=== PATIENT | female | born 1925 | race African-American/Black ===

== ENCOUNTER 2017-01-29 13:03 | Emergency (ER) | payer MEDICARE, MEDICAID ==
[2017-01-29 14:25] LABS: ALT (SGPT) 17 U/L (8-55); AST (SGOT) 19 U/L (5-34); Alkaline Phosphatase 80 U/L (40-150); Anion Gap 13 mmol/L (10-20); BUN (Urea Nitrogen) 30 mg/dL (9.8-20.1); Bilirubin, Total 0.3 mg/dL (0.2-1.2); Calc. Creatinine Clearance 0 mL/min (70-130); Calcium 9.2 mg/dL (7.8-10.44); Carbon Dioxide 20 mmol/L (23-31); Chloride 112 mmol/L (98-107); Estimated GFR-MDRD 48; Globulin 3.5 g/dL (2.4-3.5); Protein, Total 7.4 g/dL (6.0-8.3)
[2017-01-29 14:34] LABS: Bilirubin Negative (Negative); Blood, Urine Negative (Negative); Glucose, Urine (Dipstick) Negative (Negative); Ketone, Urine Negative (Negative); Nitrite Negative (Negative); Protein, Urine (Dipstick) Negative (Neg-Trace); Urobilinogen 0.2 mg/dL (0.2-1.0)
[2017-01-29 14:37] LABS: Bacteria/HPF 4+ HPF (None Seen); Hyaline Casts/LPF 0-3 HYALINE CAST LPF (0-3 Hyaline); RBC/HPF None Seen HPF (0-3); WBC/HPF 0-3 HPF (0-3)
[2017-01-29 14:51] LABS: Hematocrit 38.9 % (36.0-47.0); Mean Platelet Volume 9.9 fL (7.4-10.4); Red Blood Cell (RBC) Count 4.11 mill/uL (4.20-5.40); White Blood Cell (WBC) Count 5.4 thou/uL (4.8-10.8)
[2017-01-29 14:52] LABS: Neutrophil 68 % (42-75)
[2017-01-29] MEDS ORDERED: Ketorolac Tromethamine 30 MG/ML VIAL ONE (15:11)
--- NOTE | 2017-01-29 15:50 | RAD ---
EXAM: AP PELVIS HISTORY: PAIN. FINDINGS: There is a probable acute fracture involving the left inferior and superior pubic rami. Overall, luation of the bony pelvis is limited by bone demineralization. IMPRESSION: Acute left inferior and superior pubic rami fractures are suspected. Better interrogation with a pel ian CT is recommended. POS: [facility]
--- NOTE | 2017-01-29 16:07 | CT ---
PELVI CT WITHOUT IV CONTRAST: History: 89-year-old female with pelvic pain and low back pain with pain down her leg. Comparison: AP pelvis plain film examination, 01-29-17. FINDINGS: Heterogeneous bony demineralization. Arthrosis changes of both hip joints and SI joints. No evidence for an acute pelvic fracture. Significant lumbar spine spondylosis with 0.9 cm anterolisthesis of L 4 on L5 with some associated canal, right recess, and foraminal stenosis. IMPRESSION: Bony demineralization with degenerative changes without acute pelvic fracture. Lumbar spine spondylo sis with prominent anterolisthesis of L4 on L5. POS: [facility]
== END 2017-01-29 16:56 | disposition home or self-care (01) ==
LOC: ERS 13:03
DX: M54.40 Lumbago with sciatica, unspecified side (principal); E10.40 Type 1 diabetes mellitus with diabetic neuropathy, unspecified; E78.5 Hyperlipidemia, unspecified; I48.91 Unspecified atrial fibrillation; I10 Essential (primary) hypertension; Z79.4 Long term (current) use of insulin; Z79.899 Other long term (current) drug therapy
CPT/HCPCS: 36415; 51701; 72170; 72192; 80053; 81003; 81015; 85025; 93005; 96372; A4353; J1885

== ENCOUNTER 2017-04-15 12:05 | Emergency (ER) | payer MEDICARE, MEDICAID ==
[2017-04-15 13:41] LABS: Bilirubin Negative (Negative); Blood, Urine Negative (Negative); Clarity CLEAR (Clear); Glucose, Urine (Dipstick) Negative (Negative); Leukocyte Small (Negative); Nitrite Negative (Negative); Protein, Urine (Dipstick) Negative (Neg-Trace); Specific Gravity, Urine 1.015 (1.002-1.036); Urobilinogen 0.2 mg/dL (0.2-1.0)
[2017-04-15 13:46] LABS: Bacteria/HPF 4+ HPF (None Seen); Hyaline Casts/LPF 4-6 HYALINE CAST LPF (0-3 Hyaline); Pathc Cast-AUWi Flag 0.13 (0-2.49); RBC/HPF 0-3 HPF (0-3); Squamous Epithelial 0-3 HPF (0-3)
[2017-04-15 13:46] LABS: #Eosinphils 0.2 thou/uL (0.0-0.7); #Lymphocytes 1.9 thou/uL (1.20-3.40); #Monocytes 0.4 thou/uL (0.11-0.59); #Neutrophils 3.7 thou/uL (1.40-6.50); %Basophils 0.3 % (0.0-1.0); %Eosinophils 3.4 % (0.0-10.0); %Monocytes 6.5 % (0.0-10.0); %Neutrophils 58.8 % (42.0-75.0); Hemoglobin 12.6 g/dL (12.0-16.0); Mean Corpuscular HGB CONC 32.2 g/dL (32.0-36.0); Mean Corpuscular Hemoglobin 30.4 pg (27.0-31.0); Mean Corpuscular Volume 94.4 fl (81.0-99.0); Mean Platelet Volume 9.9 fL (7.4-10.4); Platelet Count 170 thou/uL (130-400); RBC Distribution Width 12.4 % (11.5-14.5); Red Blood Cell (RBC) Count 4.16 mill/uL (4.20-5.40); White Blood Cell (WBC) Count 6.2 thou/uL (4.8-10.8)
--- NOTE | 2017-04-15 13:59 | RAD ---
UPRIGHT PORTABLE CHEST 1 VIEW: Date: 04/15/17 HISTORY: 89-year-old female with altered mental status and weakness, with low blood count. COMPARISON: 05/10/16. FINDINGS: Minimal cardiomegaly. Left ICD. Atherosclerosis of aorta with ectasia. Metal plate and screws stabili ze the proximal humerus. No confluent pneumonia, overt edema, or pleural effusion. IMPRESSION: Minimal cardiomegaly. Atherosclerosis of the aorta with ectasia. POS: [facility]
[2017-04-15 14:11] LABS: ALT (SGPT) 9 U/L (8-55); AST (SGOT) 17 U/L (5-34); Alkaline Phosphatase 93 U/L (40-150); Anion Gap 13 mmol/L (10-20); BUN (Urea Nitrogen) 27 mg/dL (9.8-20.1); Bilirubin, Total 0.2 mg/dL (0.2-1.2); CK (CPK) 420 U/L (29-168); CKMB 4.2 ng/mL (0-6.6); Calc. Creatinine Clearance 0 mL/min (70-130); Calcium 9.7 mg/dL (7.8-10.44); Carbon Dioxide 26 mmol/L (23-31); Chloride 107 mmol/L (98-107); Estimated GFR-MDRD 40; Globulin 3.4 g/dL (2.4-3.5); Glucose 200 mg/dL (83-110); Lipase 9 U/L (8-78); Potassium 4.9 mmol/L (3.5-5.1); Protein, Total 7.4 g/dL (6.0-8.3); Sodium 141 mmol/L (136-145); Troponin I Less than 0.010 ng/mL (< 0.028)
--- NOTE | 2017-04-29 18:41 | EKG ---
Test Reason : FATIGUE Blood Pressure : / mmHG Vent. Rate : 092 BPM Atrial Rate : 092 BPM P-R Int : 260 ms QRS Dur : 104 ms QT Int : 330 ms P-R-T Axes : 086 -27 245 degrees QTc Int : 408 ms Sinus rhythm with 1st degree A-V block with frequent ventricular-paced complexes Cannot rule out Anterior infarct , age undetermined Abnormal ECG Confirmed by YAAKOV HAYES MD ([id number]), features editor FINA BLUE ([id number]) on 04/29/2017 6:40:24 PM Referred By: Confirmed By:YAAKOV HAYES MD
== END 2017-04-15 15:34 | disposition home or self-care (01) ==
LOC: ERS 12:05
DX: N39.0 Urinary tract infection, site not specified (principal); N28.9 Disorder of kidney and ureter, unspecified; E10.40 Type 1 diabetes mellitus with diabetic neuropathy, unspecified; E78.5 Hyperlipidemia, unspecified; I48.91 Unspecified atrial fibrillation; I10 Essential (primary) hypertension; Z79.4 Long term (current) use of insulin; Z79.899 Other long term (current) drug therapy
CPT/HCPCS: 36415; 36416; 51701; 71045; 80053; 81003; 81015; 82550; 82553; 83690; 84484; 85025; 93005; 96374; A4353; J0696

== ENCOUNTER 2017-04-17 14:06 | Emergency (ER) | payer MEDICARE, MEDICAID ==
--- NOTE | 2017-04-17 15:00 | CT ---
CT OF THE BRAIN WITHOUT CONTRAST: Date: 04/17/17 COMPARISON: 04/12/16. HISTORY: Altered mental status and hallucinations. TECHNIQUE: Multiple contiguous axial images were obtained in a CT of the brain without contrast. FINDINGS: There is encephalomalacia in the left occipital lobe. Calcifications are seen in the basal ganglia. T here is no evidence of hydrocephalus, intracranial hemorrhage, or extra-axial fluid collection. No ne w large confluent infarction is seen. The calvarium and overlying soft tissues are unremarkable. The visualized paranasal sinuses and masto id air cells are well aerated. IMPRESSION: No evidence of acute intracranial abnormality. POS: [facility]
[2017-04-17 15:23] LABS: #Eosinphils 0.2 thou/uL (0.0-0.7); #Lymphocytes 1.6 thou/uL (1.20-3.40); #Monocytes 0.4 thou/uL (0.11-0.59); #Neutrophils 3.2 thou/uL (1.40-6.50); %Basophils 0.4 % (0.0-1.0); %Eosinophils 3.9 % (0.0-10.0); %Lymphocytes 29.1 % (21.0-51.0); %Monocytes 7.9 % (0.0-10.0); %Neutrophils 58.7 % (42.0-75.0); Hemoglobin 11.5 g/dL (12.0-16.0); Mean Corpuscular HGB CONC 30.9 g/dL (32.0-36.0); Mean Corpuscular Hemoglobin 29.5 pg (27.0-31.0); Mean Corpuscular Volume 95.4 fl (81.0-99.0); Mean Platelet Volume 9.9 fL (7.4-10.4); Platelet Count 162 thou/uL (130-400); RBC Distribution Width 12.3 % (11.5-14.5); White Blood Cell (WBC) Count 5.5 thou/uL (4.8-10.8)
[2017-04-17 15:26] LABS: Bilirubin Negative (Negative); Blood, Urine Negative (Negative); Clarity CLEAR (Clear); Glucose, Urine (Dipstick) Negative (Negative); Leukocyte Negative (Negative); Nitrite Negative (Negative); Protein, Urine (Dipstick) Negative (Neg-Trace); Specific Gravity, Urine 1.015 (1.002-1.036); Urobilinogen 0.2 mg/dL (0.2-1.0); pH, Urine 5.5 (5.0-9.0)
[2017-04-17 15:43] LABS: ALT (SGPT) 8 U/L (8-55); AST (SGOT) 14 U/L (5-34); Albumin 3.9 g/dL (3.4-4.8); Alkaline Phosphatase 86 U/L (40-150); Anion Gap 13 mmol/L (10-20); BUN (Urea Nitrogen) 30 mg/dL (9.8-20.1); Bilirubin, Total 0.2 mg/dL (0.2-1.2); CK (CPK) 310 U/L (29-168); Calc. Creatinine Clearance 0 mL/min (70-130); Calcium 9.2 mg/dL (7.8-10.44); Carbon Dioxide 25 mmol/L (23-31); Chloride 105 mmol/L (98-107); Estimated GFR-MDRD 33; Globulin 3.2 g/dL (2.4-3.5); Glucose 236 mg/dL (83-110); Potassium 4.6 mmol/L (3.5-5.1); Protein, Total 7.1 g/dL (6.0-8.3); Sodium 138 mmol/L (136-145)
[2017-04-17 15:48] LABS: CKMB 2.4 ng/mL (0-6.6); Troponin I Less than 0.010 ng/mL (< 0.028)
== END 2017-04-17 16:10 | disposition home or self-care (01) ==
LOC: ERS 14:06
DX: R41.82 Altered mental status, unspecified (principal); E10.40 Type 1 diabetes mellitus with diabetic neuropathy, unspecified; E78.5 Hyperlipidemia, unspecified; I48.91 Unspecified atrial fibrillation; I10 Essential (primary) hypertension
CPT/HCPCS: 36415; 51701; 70450; 80053; 81003; 82553; 83605; 84484; 85025; 87040; 87086; A4353

== ENCOUNTER 2017-04-28 16:02 | Emergency (ER) | payer MEDICARE, MEDICAID ==
[2017-04-28] MEDS ORDERED: HYDROcodone/Acetaminophen 5/325 mg Tablet ONE (16:36)
[2017-04-28 17:24] LABS: Bilirubin Negative (Negative); Blood, Urine Negative (Negative); Clarity CLOUDY (Clear); Glucose, Urine (Dipstick) Negative (Negative); Leukocyte Moderate (Negative); Nitrite Negative (Negative); Protein, Urine (Dipstick) Negative (Neg-Trace); Specific Gravity, Urine 1.012 (1.002-1.036); Urobilinogen 0.2 mg/dL (0.2-1.0); pH, Urine 5.5 (5.0-9.0)
[2017-04-28 17:26] LABS: Bacteria/HPF 4+ HPF (None Seen); Hyaline Casts/LPF 4-6 HYALINE CAST LPF (0-3 Hyaline); Pathc Cast-AUWi Flag 1.21 (0-2.49); RBC/HPF None Seen HPF (0-3)
[2017-04-28 17:50] LABS: Transitional Epithelial 0-3 HPF (0-3)
--- NOTE | 2017-04-28 18:08 | RAD ---
LEFT SHOULDER THREE VIEWS 04/28/17 HISTORY: Pain. COMPARISON: 03/15/16. FINDINGS: Stable severe degenerative change. No evidence of an acute fracture. There is mild bone demineralizat ion. The visualized left ribs are unremarkable. IMPRESSION: Stable severe degenerative change. POS: [facility]
--- NOTE | 2017-04-28 18:27 | RAD ---
TWO VIEWS RIGHT HIP 04/28/17 HISTORY: Double leg amputee. Pain. COMPARISON: None. FINDINGS: There is diffuse bone demineralization likely due to disuse osteopenia. Obvious fracture is not appre ciated. Limited evaluation of the joint space. No high grade degenerative change is appreciated. Vasc ular calcifications are identified. IMPRESSION: Disuse osteopenia. POS: [facility]
--- NOTE | 2017-04-28 20:48 | RAD ---
TWO VIEWS LEFT HIP 04/28/17 HISTORY: Pain. COMPARISON: 05/10/15. FINDINGS: Findings compatible with amputation. Limited evaluation of the hip. No obvious fracture. Mild loss of the hip joint space height is suspected. There is diffuse osteopenia. Vascular calcifications are id entified. IMPRESSION: Disuse osteopenia. No fracture. POS: [facility]
[2017-04-28] MEDS ORDERED: Cipro 250 MG TAB PO SCH (21:00)
== END 2017-04-28 21:25 | disposition home or self-care (01) ==
LOC: ERS 16:02
DX: N39.0 Urinary tract infection, site not specified (principal); E10.40 Type 1 diabetes mellitus with diabetic neuropathy, unspecified; E78.5 Hyperlipidemia, unspecified; I48.91 Unspecified atrial fibrillation; I10 Essential (primary) hypertension; Z79.4 Long term (current) use of insulin; Z79.899 Other long term (current) drug therapy
CPT/HCPCS: 51701; 81003; 81015; 87077; 87086; 87186; A4353

== ENCOUNTER 2017-06-04 09:56 | Observation (INO) | payer MEDICARE, MEDICAID ==
[2017-06-04 10:43] LABS: #Eosinphils 0.2 thou/uL (0.0-0.7); #Lymphocytes 1.7 thou/uL (1.20-3.40); #Monocytes 0.4 thou/uL (0.11-0.59); #Neutrophils 3.5 thou/uL (1.40-6.50); %Basophils 0.1 % (0.0-1.0); %Eosinophils 3.7 % (0.0-10.0); %Lymphocytes 29.6 % (21.0-51.0); %Monocytes 7.5 % (0.0-10.0); %Neutrophils 59.2 % (42.0-75.0); Hemoglobin 12.9 g/dL (12.0-16.0); Mean Corpuscular HGB CONC 32.1 g/dL (32.0-36.0); Mean Corpuscular Hemoglobin 29.6 pg (27.0-31.0); Mean Corpuscular Volume 92.2 fl (81.0-99.0); Mean Platelet Volume 10.1 fL (7.4-10.4); Platelet Count 200 thou/uL (130-400); RBC Distribution Width 12.5 % (11.5-14.5); Red Blood Cell (RBC) Count 4.38 mill/uL (4.20-5.40); White Blood Cell (WBC) Count 5.9 thou/uL (4.8-10.8)
[2017-06-04 10:59] LABS: ALT (SGPT) 24 U/L (8-55); AST (SGOT) 23 U/L (5-34); Albumin 3.9 g/dL (3.4-4.8); Alkaline Phosphatase 91 U/L (40-150); Anion Gap 14 mmol/L (10-20); BUN (Urea Nitrogen) 33 mg/dL (9.8-20.1); Bilirubin, Total 0.3 mg/dL (0.2-1.2); Calc. Creatinine Clearance 0 mL/min (70-130); Calcium 9.5 mg/dL (7.8-10.44); Carbon Dioxide 25 mmol/L (23-31); Chloride 108 mmol/L (98-107); Estimated GFR-MDRD 40; Globulin 3.7 g/dL (2.4-3.5); Glucose 174 mg/dL (83-110); Protein, Total 7.6 g/dL (6.0-8.3); Sodium 142 mmol/L (136-145)
[2017-06-04 11:04] LABS: CKMB 2.1 ng/mL (0-6.6); Troponin I Less than 0.010 ng/mL (< 0.028)
[2017-06-04 11:53] LABS: Bilirubin Negative (Negative); Blood, Urine Moderate (Negative); Glucose, Urine (Dipstick) Negative (Negative); Leukocyte Negative (Negative); Nitrite Negative (Negative); Protein, Urine (Dipstick) Negative (Neg-Trace); Urobilinogen 0.2 mg/dL (0.2-1.0); pH, Urine 7.5 (5.0-9.0)
[2017-06-04 11:59] LABS: Clarity HAZY (Clear); Specific Gravity, Urine 1.001 (1.002-1.036)
[2017-06-04 12:00] LABS: RBC/HPF 0-3 HPF (0-3); Squamous Epithelial 0-3 HPF (0-3); WBC/HPF 0-3 HPF (0-3)
[2017-06-04 12:01] LABS: Bacteria/HPF 4+ HPF (None Seen); Hyaline Casts/LPF NONE SEEN LPF (0-3 Hyaline)
--- NOTE | 2017-06-04 12:50 | CT ---
CT OF THE BRAIN WITHOUT CONTRAST: INDICATION: Syncopal episode while having a bowel movement. COMPARISON: Prior exam dated 04/17/17. FINDINGS: The encephalomalacia involving the left occipital lobe is stable. Calcifications involving the basal ganglia are similar-appearing. Mild chronic small-vessel white matter ischemic change is similar. No acute infarct, hemorrhage, or hydrocephalus is present. Mild mucosal thickening is seen within th e ethmoid air cells. Mastoid air cells are clear. The skull is intact. IMPRESSION: No acute intracranial abnormality. POS: [facility]
[2017-06-04] MEDS ORDERED: Acetaminophen 325 MG TAB PO PRN (14:02)
[2017-06-04 14:42] LABS: Troponin I Less than 0.010 ng/mL (< 0.028)
[2017-06-04] MEDS ORDERED: Dextrose 50% Abboject 50 ML SYRINGE IVP PRN (16:19)
[2017-06-04] MEDS ORDERED: Insulin Regular 300 UNITS/3 ML VIAL SC PRN (16:19)
[2017-06-04] MEDS ORDERED: Dextrose 5% in Water 1,000 ML IV PRN (16:19)
[2017-06-04 17:38] LABS: Troponin I Less than 0.010 ng/mL (< 0.028)
[2017-06-04] MEDS ORDERED: Acetaminophen 500 MG TAB PO PRN (18:05)
[2017-06-04] MEDS: Sodium Chloride 0.45% 1,000 ML IV SCH (18:30)
[2017-06-04] MEDS ORDERED: Pregabalin 75 MG CAP PO SCH (21:00)
[2017-06-04] MEDS ORDERED: Insulin Detemir 100 UNITS/ML 30 UNITS in Pre-Filled Syringe SC SCH (21:00)
[2017-06-04] MEDS ORDERED: Pravastatin Sodium 40 MG TAB PO SCH (21:00)
[2017-06-04] MEDS ORDERED: Donepezil HCl 5 MG TAB PO SCH (21:00)
[2017-06-04] MEDS: HumaLOG 300 UNITS/3 ML VIAL SC SCH (21:14)
--- NOTE | 2017-06-04 22:23 | ULT ---
BILATERAL CAROTID DUPLEX ULTRASOUND WITH SPECTRAL ANALYSIS AND COLOR FLOW EVALUATION: Date: 06-04-17 History: Dizziness. Comparison: 01-03-13 FINDINGS: Grayscale, color flow, doppler evaluation and spectral analysis of the bilateral carotid arteries is performed with 2D imaging. There is calcified atherosclerotic plaque involving the bilateral carotid bulbs and proximal internal carotid arteries bilaterally, greater on the right. There is less than 50% maximal stenosis in the bilateral internal carotid arteries according to the p eak systolic velocities and the ICA/CCA ratios. Peak systolic velocity in the right ICA is 53.3 cm/se c with an ICA/CCA ratio of 0.88. The peak systolic velocity in the left ICA is 67.2 cm/sec with ICA/C CA ratio of 0.78. The velocity measurements are similar to the prior study in 2013. Antegrade flow is demonstrated in the vertebral arteries bilaterally. IMPRESSION: No hemodynamically significant stenosis in the bilateral internal carotid arteries. POS: [facility]
[2017-06-05] MEDS: Sodium Chloride 0.45% 1,000 ML IV SCH (05:02)
[2017-06-05 05:48] LABS: Hemoglobin A1c 6.3 % (4.0-6.0)
[2017-06-05 05:51] LABS: Anion Gap 12 mmol/L (10-20); BUN (Urea Nitrogen) 28 mg/dL (9.8-20.1); Calc. Creatinine Clearance 42 mL/min (70-130); Calcium 9.3 mg/dL (7.8-10.44); Carbon Dioxide 23 mmol/L (23-31); Chloride 111 mmol/L (98-107); Estimated GFR-MDRD 56; Glucose 84 mg/dL (83-110); Potassium 4.3 mmol/L (3.5-5.1); Sodium 142 mmol/L (136-145)
[2017-06-05] MEDS ORDERED: Levothyroxine Sodium 100 MCG TAB PO SCH (06:00)
--- NOTE | 2017-06-05 06:10 | HP ---
DATE OF ADMISSION: 06/04/2017 REASON FOR ADMISSION AND CHIEF COMPLAINT: Near syncopal episode. HISTORY OF PRESENT ILLNESS: Ms. Rajput is an 89-year-old -[place] female with past medic al history of diabetes mellitus, hypertension, peripheral vascular disease, and had an episode of velia r syncope. She had felt like passing out while she was in the bathroom. The patient's family was ab le to hold on and she did not fall, hit her head or anything. She did not lose consciousness, but fe lt very dizzy, almost felt like passing out. The patient was also noted to be bit confused after the episode. So, the patient was brought to the emergency room where she was evaluated and found to hav e normal EKG and normal cardiac enzymes. The patient is being admitted to rule out any cardiac arrhy thmia, rule out GA in view of her risk factors. PAST MEDICAL HISTORY: 1. Hypertension. 2. Insulin-dependent diabetes mellitus. 3. Peripheral vascular disease. 4. Hyperlipidemia. 5. Chronic anemia. PAST SURGICAL HISTORY: Status post hip replacement, status post knee amputation bilaterally, status post arterial femoral bypass graft. CURRENT MEDICATIONS: The patient is on amlodipine 5 mg daily, vitamin D 5000 units daily, Aricept 5 mg daily, ferrous sulfate 325 mg daily, Lantus insulin 30 units daily, levothyroxine 100 mcg daily, P rotonix 40 mg daily, MiraLax 17 grams daily, Pravachol 40 mg at bedtime, Lyrica 75 b.i.d., valsartan with hydrochlorothiazide 160/25 mg daily, NovoLog insulin 12 units before each meal. ALLERGIES: No known drug allergies. FAMILY HISTORY: Nothing of interest. SOCIAL HISTORY: The patient lives with family. No history of smoking. No history of alcohol intake . REVIEW OF SYSTEMS: Cardiovascular: No chest pain. No shortness of breath. Respiratory: No fever or cough. Gastrointestinal: No nausea, vomiting, no abdominal pain. Central nervous system: No he adache, no dizziness. PHYSICAL EXAMINATION: GENERAL: The patient is alert, awake, oriented x3. VITAL SIGNS: Temperature 98, pulse 97, respirations 20, blood pressure 150/70. HEENT: Head is normocephalic, atraumatic. Pupils are equal and reactive to light. Nasopharynx is p karthikeyan and dry. Hard and soft palate, no lesions seen. SKIN: Skin turgor decreased. NECK: Supple. No JVD. LUNGS: Bilateral air entry present. No rales, no rhonchi. HEART: S1, S2 regular. ABDOMEN: Soft, no distention, no tenderness. Normal bowel sounds. RECTAL: Deferred. CENTRAL NERVOUS SYSTEM: No focal deficits. LABORATORY DATA AND X-RAY FINDINGS: CBC shows WBC 5.9, hemoglobin 12, hematocrit 40, platelets 200. Metabolic panel: Sodium 142, potassium 5, chloride 108, CO2 of 25, urea nitrogen 33, creatinine 1.4 , glucose 174, CK-MB 2.1, troponin I less than 0.010. Urinalysis negative. CT of the brain unremark able. EKG shows normal sinus rhythm, no acute ST-T wave changes seen. ASSESSMENT: 1. Near syncopal episode, rule out myocardial infarction, rule out cardiac arrhythmia. 2. Diabetes mellitus. 3. Hypertension. 4. Peripheral vascular disease. 5. Status post below knee amputation bilaterally. 6. Acute kidney injury. PLAN: 1. Vital signs q.4 hours. 2. Activity: As tolerated. 3. Allergies: NKDA. 4. IV fluids: Normal saline at 100 mL per hour x2 liters. 5. Accu-Cheks a.c. and bedtime. 6. Sliding scale mild with regular insulin. 7. ADA diet. 8. Continue home medications. 9. Carotid Doppler study. 10. Echocardiogram.
[2017-06-05 08:04] VITALS: TEMP 97.9
[2017-06-05] MEDS ORDERED: Polyethylene Glycol 3350 17 GM Packet PO SCH (09:00)
[2017-06-05] MEDS ORDERED: Amlodipine 5 MG TAB PO SCH (09:00)
[2017-06-05] MEDS ORDERED: Ferrous Sulfate 325 MG TAB PO SCH (09:00)
[2017-06-05] MEDS ORDERED: Hydrochlorothiazide 25 MG TAB PO SCH (09:00)
[2017-06-05] MEDS ORDERED: Valsartan 80 MG TAB PO SCH (09:00)
[2017-06-05] MEDS: HumaLOG 300 UNITS/3 ML VIAL SC SCH ×2 (09:30→16:11)
[2017-06-05 17:04] VITALS: BP 140/65
--- NOTE | 2017-06-06 14:22 | DIS ---
DATE OF ADMISSION: 06/04/2017 DATE OF DISCHARGE: 06/05/2017 ADMITTING DIAGNOSES: 1. Near syncopal episode, rule out myocardial infarction, rule out cardiac arrhythmia. 2. Diabetes mellitus. 3. Hypertension. 4. Peripheral vascular disease. 5. Status post [id number]-[id number] amputation bilaterally. 6. Acute kidney injury. FINAL DIAGNOSES: 1. Near syncopal episode. No evidence of acute myocardial infarction and no evidence of cardiac arr hythmia. 2. Acute kidney injury, improved. 3. Diabetes mellitus. 4. Hypertension. 5. Peripheral vascular disease. BRIEF SUMMARY OF HOSPITAL COURSE: Ms. Rajput is an 89-year-old -[place] admitted because of near syncopal episode. The patient nearly passed out, but she is admitted to rule out myocardial infarction and rule out cardiac arrhythmia. Cardiac monitoring did not show any arrhythmia. Serial cardiac enzymes were normal. Carotid Doppler study was done and showed negative for any hemodynamic ally significant stenosis. Echocardiogram was done, showed normal left ventricular function, ejectio n fraction of 51%. Patient does not have any more dizziness and was discharged in view of improvemen t. At the time of discharge, she was stable. Her vital signs were stable. Lungs were clear. Heart sounds regular. Abdomen was soft, nontender. Bowel sounds present. DISCHARGE MEDICATIONS: Lyrica 75 mg daily, valsartan with hydrochlorothiazide 160/25 mg daily, Elza nix 40 mg daily, Synthroid 100 mcg daily, amlodipine 5 mg daily, NovoLog insulin 20 units before meal s t.i.d., Lantus insulin 30 units daily, Aricept 5 mg daily, Pravachol 40 mg daily, MiraLax 17 grams daily, ferrous sulfate daily, vitamin D daily, Tylenol p.r.n. FOLLOWUP: The patient will be followed up in 2 weeks.
== END 2017-06-05 17:19 | disposition home or self-care (01) ==
LOC: ERS 09:56 → 2NO 12:47
PROVIDERS: ADMIT Internal Medicine; ATTEND Internal Medicine
DX: R55 Syncope and collapse (principal); E10.51 Type 1 diabetes mellitus with diabetic peripheral angiopathy without gangrene; I10 Essential (primary) hypertension; E78.5 Hyperlipidemia, unspecified; D53.9 Nutritional anemia, unspecified; N17.9 Acute kidney failure, unspecified; Z96.649 Presence of unspecified artificial hip joint; Z79.899 Other long term (current) drug therapy; Z88.5 Allergy status to narcotic agent; Z95.0 Presence of cardiac pacemaker; Z95.820 Peripheral vascular angioplasty status with implants and grafts; Z90.49 Acquired absence of other specified parts of digestive tract; Z89.512 Acquired absence of left leg below knee; Z89.511 Acquired absence of right leg below knee
CPT/HCPCS: 70450; 80048; 80053; 82553; 82962 ×2; 83036; 84484 ×2; 85025; 87086; 93005; 93306; 93880; 94760; 96360; 96361 ×2; 99285; G0378; 36415; 36416; 81003; 81015; J1815